=== PATIENT | male | born 1980 | race Caucasian/White ===

== ENCOUNTER 2020-07-15 13:33 | Emergency (ER) | payer OTHER ==
[~2020-07-15] VITALS: Ht 172.7 cm; Wt 79.4 kg
[2020-07-15] MEDS ORDERED: OFLOXACIN5 ML LEFTEAR (14:48)
== END 2020-07-15 15:04 | disposition home or self-care (01) ==
LOC: ER 13:33
DX: S09.22XA Traumatic rupture of left ear drum, initial encounter (principal); Z88.0 Allergy status to penicillin; W22.8XXA Striking against or struck by other objects, initial encounter; Y93.89 Activity, other specified
CPT/HCPCS: 99282; A9270